=== PATIENT | male | born 1995 | race Caucasian/White ===

== ENCOUNTER 2017-01-20 19:27 | Emergency (ER) | payer SELFPAY ==
[~2017-01-20] VITALS: Ht 185.4 cm; Wt 72.6 kg
[~2017-01-20 19:27] MED LIST: ABILIFY1 MG/ML PO; AMOXICILLIN500 MG PO; ANAPROX DS550 MG PO; ANTIVERT25 MG PO; CELEXA10 MG PO; CIPRO500 MG PO; CIPROFLOXACIN500 MG PO; CLARITIN10 MG PO; DEPAKOTE500 MG; IBU-6600 MG PO; KEFLEX500 MG PO; MOTRIN400 MG PO; MOTRIN600 MG PO; MOTRIN800 MG PO; NAPROSYN500 MG PO; NKHM; WELLBUTRIN75 MG; ZITHROMAX Z PA250 MG PO
[2017-01-20 19:58] VITALS: BP 129/82
== END 2017-01-20 21:28 | disposition home or self-care (01) ==
LOC: ED 19:27
DX: M79.672 Pain in left foot (principal); F17.200 Nicotine dependence, unspecified, uncomplicated

== ENCOUNTER 2018-01-13 10:42 | Emergency (ER) | payer BC ==
[~2018-01-13] VITALS: Ht 187.9 cm; Wt 74.8 kg
[2018-01-13 10:43] VITALS: BP 112/64
== END 2018-01-13 13:34 | disposition home or self-care (01) ==
LOC: ED 10:42
DX: J10.1 Influenza due to other identified influenza virus with other respiratory manifestations (principal)

== ENCOUNTER 2020-08-24 19:25 | Emergency (ER) | payer OTHER ==
[~2020-08-24] VITALS: Wt 72.6 kg
[2020-08-24 19:28] VITALS: BP 131/72
== END 2020-08-24 19:56 | disposition home or self-care (01) ==
LOC: ED 19:25
DX: S61.111A Laceration without foreign body of right thumb with damage to nail, initial encounter (principal); X58.XXXA Exposure to other specified factors, initial encounter; Y93.89 Activity, other specified; Y92.89 Other specified places as the place of occurrence of the external cause; Y99.8 Other external cause status

== ENCOUNTER 2021-10-15 07:45 | Emergency (ER) | payer OTHER ==
[~2021-10-15] VITALS: Ht 187.9 cm; Wt 81.6 kg
[2021-10-15 07:54] VITALS: BP 127/78
== END 2021-10-15 08:38 | disposition home or self-care (01) ==
LOC: ED 07:45
DX: R50.9 Fever, unspecified (principal)

== ENCOUNTER 2021-12-06 18:22 | Emergency (ER) | payer OTHER ==
[~2021-12-06] VITALS: Wt 81.6 kg
[2021-12-06 18:48] VITALS: BP 119/62
== END 2021-12-06 19:52 | disposition home or self-care (01) ==
LOC: ED 18:22
DX: B34.9 Viral infection, unspecified (principal); Z20.822 Contact with and (suspected) exposure to COVID-19

== ENCOUNTER 2023-04-30 07:43 | Emergency (ER) | payer OTHER ==
[~2023-04-30] VITALS: Wt 65.8 kg
[2023-04-30 07:52] VITALS: BP 126/74
== END 2023-04-30 08:32 | disposition home or self-care (01) ==
LOC: ED 07:43
DX: M25.532 Pain in left wrist (principal); M25.531 Pain in right wrist; J45.909 Unspecified asthma, uncomplicated; F31.9 Bipolar disorder, unspecified; Z86.16 Personal history of COVID-19

== ENCOUNTER 2023-06-12 08:03 | Emergency (ER) | payer OTHER ==
[~2023-06-12] VITALS: Ht 187.9 cm; Wt 65.8 kg
[2023-06-12 08:15] VITALS: BP 105/47
== END 2023-06-12 09:22 | disposition home or self-care (01) ==
LOC: ED 08:03
DX: R51.9 Headache, unspecified (principal); R11.10 Vomiting, unspecified; J45.909 Unspecified asthma, uncomplicated; F31.9 Bipolar disorder, unspecified; F17.200 Nicotine dependence, unspecified, uncomplicated; Z86.16 Personal history of COVID-19

== ENCOUNTER 2023-10-20 08:50 | Emergency (ER) | payer SELFPAY ==
[~2023-10-20] VITALS: Ht 185.4 cm; Wt 74.8 kg
[2023-10-20 09:05] VITALS: BP 113/79
[2023-10-20 09:27] LABS: BASO % 0.1 % (0.0-1.0); EOS # 0.1 10*3/uL (0.0-0.4); EOS % 0.7 % (1.0-4.0); HEMATOCRIT 46.5 % (42.0-52.0); LYMPH # 1.7 10*3/uL (1.3-4.4); LYMPH % 22.4 % (27.0-41.0); MEAN CELL VOLUME 86.9 fl (80.0-94.0); MEAN CORPUSCULAR HGB 29.2 pg (27.0-31.0); MEAN CORPUSCULAR HGB CONC 33.5 g/dl (33.0-37.0); MEAN PLATELET VOLUME 10.7 fl (9.6-12.3); MONO # 0.9 10*3/uL (0.1-1.0); MONO % 12.5 % (3.0-9.0); NEUT # 4.8 10*3/uL (2.3-7.9); NEUT % 64.2 % (47.0-73.0); PLATELET COUNT AUTOMATED 146 10*3/uL (130-400); RED BLOOD COUNT 5.35 10*6/uL (4.50-5.90); RED CELL DISTRI WIDTH 12.2 % (0-14.5); WHITE BLOOD COUNT 7.5 10*3/uL (4.8-10.8)
[2023-10-20 09:52] LABS: ALKALINE PHOSPHATASE 95 U/L (46-116); BUN 14 mg/dl (9-23); CHLORIDE 100 mmol/L (98-107); LIPASE 28 U/L (12-53); POTASSIUM 3.8 mmol/L (3.4-5.1); SGPT/ALT 28 U/L (5-49); TOTAL PROTEIN 7.5 gm/dL (6.0-8.0)
[2023-10-20] MEDS ORDERED: TAMIFLU 75MG CA75 MG PO (10:10)
== END 2023-10-20 10:13 | disposition home or self-care (01) ==
LOC: ED 08:50
PROVIDERS: Emergency Medicine
DX: J10.1 Influenza due to other identified influenza virus with other respiratory manifestations (principal); J45.909 Unspecified asthma, uncomplicated; F31.9 Bipolar disorder, unspecified; R11.2 Nausea with vomiting, unspecified; R51.9 Headache, unspecified; Z20.822 Contact with and (suspected) exposure to COVID-19

== ENCOUNTER 2023-10-24 06:42 | Emergency (ER) | payer SELFPAY ==
[~2023-10-24] VITALS: Ht 185.4 cm; Wt 74.8 kg
[2023-10-24 06:42] VITALS: BP 130/69
[~2023-10-24 06:42] MED LIST changes: +TAMIFLU 75MG CA75 MG PO
[2023-10-24 07:07] LABS: BILIRUBIN Negative (Negative); BLOOD Negative (Negative); CLARITY Cloudy (Clear); COLOR Yellow (Yellow); GLUCOSE Negative (Negative); KETONE Negative (Negative); LEUKO ESTERASE 2+ (Negative); NITRITE Negative (Negative); SPECIFIC GRAVITY 1.025 (1.001-1.030); UROBILINOGEN 0.2 E.U./dl (0.0-1.0)
[2023-10-24 07:14] LABS: URINE AMPHETAMINES Negative (1000ng/ml); URINE BARBITURATES Negative (200ng/ml); URINE BENZODIAZEPINES Negative (200ng/ml); URINE CANNABINOIDS (THC) Positive (50ng/ml); URINE COCAINE Negative (300ng/ml); URINE METHADONE Negative (300ng/ml); URINE OPIATES Positive (300ng/ml); URINE PHENCYCLIDINE Negative (25ng/ml)
[2023-10-24 07:24] LABS: BASO % 0.4 % (0.0-1.0); EOS # 0.2 10*3/uL (0.0-0.4); EOS % 3.4 % (1.0-4.0); HEMATOCRIT 46.5 % (42.0-52.0); LYMPH # 2.2 10*3/uL (1.3-4.4); LYMPH % 40.3 % (27.0-41.0); MEAN CELL VOLUME 87.4 fl (80.0-94.0); MEAN CORPUSCULAR HGB 28.6 pg (27.0-31.0); MEAN CORPUSCULAR HGB CONC 32.7 g/dl (33.0-37.0); MEAN PLATELET VOLUME 10.6 fl (9.6-12.3); MONO # 0.3 10*3/uL (0.1-1.0); NEUT # 2.7 10*3/uL (2.3-7.9); NEUT % 49.7 % (47.0-73.0); PLATELET COUNT AUTOMATED 215 10*3/uL (130-400); RED BLOOD COUNT 5.32 10*6/uL (4.50-5.90); RED CELL DISTRI WIDTH 12.1 % (0-14.5); WHITE BLOOD COUNT 5.3 10*3/uL (4.8-10.8)
[2023-10-24 07:38] LABS: ACT PARTIAL THROMBO TIME 27.9 SECONDS (20.0-32.1)
[2023-10-24 07:39] LABS: BACTERIA 3+; EPITHELIAL CELLS 16-20; MUCOUS 2+; WBC 31-40 wbc/hpf (0-5)
[2023-10-24 07:43] LABS: ALKALINE PHOSPHATASE 91 U/L (46-116); BUN 12 mg/dl (9-23); CHLORIDE 107 mmol/L (98-107); CPK 90 U/L (34-171); ETHYL ALCOHOL 3.8 mg/dl (<3); LIPASE 28 U/L (12-53); SGPT/ALT 24 U/L (5-49); TOTAL PROTEIN 7.2 gm/dL (6.0-8.0)
== END 2023-10-24 11:31 | disposition home or self-care (01) ==
LOC: ED 06:42
PROVIDERS: Internal Medicine
DX: F43.20 Adjustment disorder, unspecified (principal); J45.909 Unspecified asthma, uncomplicated; F31.9 Bipolar disorder, unspecified; R10.2 Pelvic and perineal pain; Z87.891 Personal history of nicotine dependence; Z79.899 Other long term (current) drug therapy

== ENCOUNTER 2025-04-29 17:51 | Emergency (ER) | payer OTHER ==
[~2025-04-29] VITALS: Ht 185.4 cm; Wt 79.4 kg
[2025-04-29 17:55] VITALS: BP 121/77
== END 2025-04-29 20:17 | disposition home or self-care (01) ==
LOC: ED 17:51
DX: S00.01XA Abrasion of scalp, initial encounter (principal); Z88.8 Allergy status to other drugs, medicaments and biological substances; J45.909 Unspecified asthma, uncomplicated; V49.9XXA Car occupant (driver) (passenger) injured in unspecified traffic accident, initial encounter; Y93.89 Activity, other specified; Y92.488 Other paved roadways as the place of occurrence of the external cause; Y99.8 Other external cause status

== ENCOUNTER 2025-09-29 06:16 | Emergency (ER) | payer SELFPAY ==
[~2025-09-29] VITALS: Ht 185.4 cm; Wt 77.1 kg
[2025-09-29 06:23] VITALS: BP 118/67
[2025-09-29] MEDS ORDERED: METHOCARBAMOL 500 MG TAB PO ONE (06:40)
[2025-09-29] MEDS ORDERED: METHOCARBAMOL500 M1 PO (07:38)
[2025-09-29] MEDS ORDERED: PREDNISONE50 MG PO (07:38)
== END 2025-09-29 08:07 | disposition home or self-care (01) ==
LOC: ED 06:16
DX: M51.26 Other intervertebral disc displacement, lumbar region (principal); J45.909 Unspecified asthma, uncomplicated; F31.9 Bipolar disorder, unspecified; Z86.16 Personal history of COVID-19; Z88.8 Allergy status to other drugs, medicaments and biological substances